=== PATIENT | female | born 1975 | race Caucasian/White ===

== ENCOUNTER → 2016-11-03 | Outpatient (CLI) | payer OTHER ==
[2016-10-15 21:00] VITALS: BP 145/86
[~2016-11-03] VITALS: Ht 167.6 cm; Wt 89.8 kg
[~2016-11-03] MED LIST: CEPH-264 PO; HYDR-971 PO; HYDR12.53 PO; LOVA20TA2 PO; METF850T2 PO; OMEP20CA9 PO; ONDA4TAB10 SL; ONDA4TAB7 PO; OXYC-323 PO; RANI300T3 PO; SINCALIDE 1.8 MCG in IV NORMAL SALINE 50ML 30 ML IV ONE
--- NOTE | 2016-11-03 11:35 | RAD ---
Radionuclide hepatobiliary scan with gallbladder ejection fraction, 11/03/2016: History: Right upper quadrant pain with nausea and vomiting Following IV injection of 5.5 mCi of technetium 99 M Choletec there was prompt uptake of the radionuclide from the blood stream by the liver. Activity is present in the bile ducts and gallbladder at 15 minutes. Initial imaging out to one hour showed no extension of activity into the small bowel. Additional imaging was then performed following IV injection of 1.8 mcg of cholecystokinin. There is good gallbladder emptying with the gallbladder ejection fraction calculated at 89%. Small bowel activity develops after the cholecystokinin injection. IMPRESSION: 1. No evidence of cystic duct or common bile duct obstruction. 2. The gallbladder ejection fraction is 89%.
== END | disposition home or self-care (01) ==
LOC: NM 06:48
PROVIDERS: ATTEND Physician Assistant Surgical
DX: R10.11 Right upper quadrant pain (principal); R11.0 Nausea
CPT/HCPCS: 78226; A9537; J2805